=== PATIENT | female | born 1945 | race Caucasian/White ===

== ENCOUNTER → 2017-06-16 | Outpatient (CLI) | payer OTHER, MEDICARE | LOC: CIMAGING 16:27 | PROVIDERS: ATTEND Podiatrist Foot & Ankle Surgery | DX: M20.41 Other hammer toe(s) (acquired), right foot (principal); M20.12 Hallux valgus (acquired), left foot | CPT/HCPCS: 73630-PO ==

== ENCOUNTER → 2017-07-04 | Outpatient (CLI) | payer OTHER, MEDICARE | LOC: BMCIMAGING 14:53 | PROVIDERS: ATTEND Podiatrist Foot & Ankle Surgery | DX: Z09 Encounter for follow-up examination after completed treatment for conditions other than malignant neoplasm (principal); Z98.890 Other specified postprocedural states ==

== ENCOUNTER → 2017-07-13 | Outpatient (CLI) | payer OTHER, MEDICARE | LOC: BMCIMAGING 11:56 | PROVIDERS: ATTEND Podiatrist Foot & Ankle Surgery | DX: Z09 Encounter for follow-up examination after completed treatment for conditions other than malignant neoplasm (principal); Z98.890 Other specified postprocedural states ==